=== PATIENT | male | born 1955 | race Caucasian/White ===

== ENCOUNTER → 2023-11-26 08:45 | Outpatient (REF) | payer OTHER, SELFPAY ==
[2023-11-26 12:33] LABS: % Basophils 0.7 % (0-2); % Eosinophils 2.4 % (0-6); % Lymphocytes 26.1 % (20.5-51.1); % Monocytes 9.7 % (1.7-9.3); % Neutrophils 60.1 % (42.2-75.2); Absolute Basophils 0.1 10^3/uL (0-0.2); Absolute Eosinophils 0.2 10^3/uL (0-0.7); Absolute Immature Granulocytes 0.1 10^3/uL (0-0.05); Absolute Lymphocytes 2.2 10^3/uL (1.2-3.4); Absolute Monocytes 0.8 10^3/uL (0.1-0.6); Absolute Neutrophils 5.2 10^3/uL (1.4-6.5); Hematocrit 43.9 % (39.0-52.0); Hemoglobin 15.2 g/dL (13.0-18.0); Mean Corp Hgb Conc. 34.6 g/dL (33.0-37.0); Mean Corpuscular Hgb 29.4 pg (27.0-31.0); Mean Corpuscular Volume 84.9 fL (80.0-94.0); Mean Platelet Volume 9.6 fL (7.4-10.4); Nucleated Red Blood Cells % 0 % (-); Platelet Count 413 10^3/uL (130-400); Red Blood Cell Count 5.17 10^6/uL (4.70-6.10); Red Cell Dist. Width 12.8 % (11.5-14.5); White Blood Cell Count 8.6 10^3/uL (4.8-10.8)
[2023-11-26 12:37] LABS: ALT (SGPT) 33 U/L (0-50); AST (SGOT) 29 U/L (17-59); Albumin 4.1 g/dl (3.5-5.0); Alkaline Phosphatase 65 U/L (38-126); Blood Urea Nitrogen 12 mg/dl (9-20); Calcium 9.3 mg/dl (8.4-10.2); Carbon Dioxide 30 mmol/L (22-30); Chloride 102 mmol/L (98-107); Direct Bilirubin 0.1 mg/dl (0.0-0.4); Glucose 94 mg/dl (70-99); HDL Cholesterol 32 mg/dl; LDL Cholesterol, Calculated 82 mg/dl; Sodium 137 mmol/L (135-145); Total Bilirubin 0.5 mg/dl (0.2-1.3); Total Cholesterol 173 mg/dl (50-199); Triglyceride 298 mg/dl (10-149); Very Low Density Lipoprotein 59 mg/dl (0-30); eGFR > 60.00
[2023-11-26 13:06] LABS: PSA, Total - Screen 0.48 ng/ml (0.0-4.0)
== END ==
LOC: HWLAB 08:45
PROVIDERS: ATTENDING PHYSICIAN Internal Medicine
DX: Z00.01 Encounter for general adult medical examination with abnormal findings (principal); Z12.5 Encounter for screening for malignant neoplasm of prostate
CPT/HCPCS: 36415; 80053; 80061; 82248; 85025; G0103

== ENCOUNTER → 2023-12-15 09:45 | Outpatient (REF) | payer OTHER, SELFPAY ==
[2023-12-15 12:49] LABS: Magnesium 1.9 mg/dl (1.6-2.3); Uric Acid 6.2 mg/dl (3.5-8.5)
== END ==
LOC: HWLAB 09:45
PROVIDERS: ATTENDING PHYSICIAN Internal Medicine
DX: R25.2 Cramp and spasm (principal); I89.0 Lymphedema, not elsewhere classified; M79.671 Pain in right foot
CPT/HCPCS: 36415; 83735; 84550

== ENCOUNTER 2024-10-19 14:35 | Emergency (ER) | payer OTHER, SELFPAY ==
[2024-10-19 14:38] VITALS: BP 153/100
--- NOTE | 2024-10-19 15:56 | ED.GENMED ---
History of Present Illness
General
Chief Complaint: Skin Surface Trauma
Source: patient and significant other
Exam Limitations: none
Time Seen by Provider: 10/19/24 15:13
Nursing documentation reviewed up to this point in time: agreed with
History of Present Illness
History of Present Illness:
see MDM
Past History
Past History
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
Social History
Tobacco: Non-smoker
Alcohol: None
Drug: None
Personal:
Living: with family
Review of Systems
Review of Systems
Allergies reviewed?: Yes
All Other Systems: Not applicable
Phy Exam
Physical Exam
Physical Exam:
GENERAL: Alert , in no apparent distress
HEAD: NCAT
FACE: multiple lacerations forehead, L auricle, chin, cheek
all superficial
no bleeding
4 cm to left forehead
4 cm to L cheek
EYE: pupils equal and reactive, EOMs intact.
ENT: TM normal L, normal canal, no fb and no bleeding
NEUROLOGICAL: Alert and oriented, no focal neuro deficits
SKIN: Warm and dry, lacerations, abrasions
PSYCH: Normal and appropriate interaction.
Course
Orders/Labs/Results
Orders:
Orders
10/19/24 15:54
Tetanus/Diphth/Acelpertussis [Adacel] 0.5 ml IM .ONCE ONE
Vital Signs
Initial and Last Documented VS:
Initial Vital Signs
Temp Pulse Resp BP Pulse Ox
36.8 C 102 15 153/100 96
10/19/24 14:38 10/19/24 14:38 10/19/24 14:38 10/19/24 14:38 10/19/24 14:38
Last Documented Vital Signs
Temp Pulse Resp BP Pulse Ox
36.8 C 102 15 153/100 96
10/19/24 14:38 10/19/24 14:38 10/19/24 14:38 10/19/24 14:38 10/19/24 14:38
MDM/Problems Addressed
Differential Diagnosis Includes:
see MDM
MDM/Problems Addressed:
Note:
CHIEF COMPLAINT(S)
Laceration to the forehead and multiple abrasions.
HISTORY OF PRESENT ILLNESS
The patient is a 68-year-old male presenting with multiple lacerations/scrapes to his face. The injuries occurred when he fell into shrubbery while attempting to dispose of a bird carcass that had drowned in his backyard pond. The patient reports
losing his balance and falling headfirst into the bushes. He describes 'surface scratches' on the head and ear, with one significant laceration that 'opened up pretty good.' The patient denies being diabetic. He has a history of hypertension The
patient inquires about receiving a tetanus shot, stating its been a long time since the last one.
PHYSICAL EXAM
- Head: Laceration noted on the forehead; multiple abrasions present.
- Ear: Abrasions noted.
Nursing notes reviewed and vital signs reviewed.
PLAN
- Clean the laceration and apply Steri-Strips.
- Administer a tetanus booster due to the nature of the injury and the duration since the last vaccination.
DIFFERENTIAL DIAGNOSIS
The Differential Diagnosis includes, in no particular order and is not limited to:
- Open laceration
- Abrasion
aware of pt's BP, h/o HTN
asymtpaomtmic
likely related to trauma
irrigated wounds with saline
sterristrips applied to L forehead and L cheek
all others were covered with bacitracin
tetanus updated
*Pulse Oximetry
SaO2: 96
ED Attending Note
-
Portions of this chart may have been created with voice recognition software.� Occasional wrong word or��sound alike� substitutions may have occurred due to the inherent limitations of voice recognition software.
Discharge Plan
Departure
Patient Disposition: Home (Routine Discharge)
Date of Disposition: 10/19/24
Time of Disposition: 15:58
Patient with high blood pressure during this ER visit?: Yes
Condition: Fair
Covid-19: Not Applicable
Discharge Problem:
Face lacerations
Instructions: Wound Care (DC)
Prescriptions:
No Action
[id number]-[id number] [Cortisporin] 10 ML drops,suspension
1 drp OT QID Qty: 10 0RF
Rx Instructions:
INSTILL ONE DROP INTO THE AFFECTED EAR FOUR TIMES A DAY FOR ONE WEEK
[id number] [Auralgan (w/ acetic acid)] 14 ML drops
1 drp OT QID Qty: 10 0RF
Referrals:
Av Oneil MD [Family Provider, Internal Medicine] - Follow up in 2-3 days
Activity Restrictions/Additional Instructions:
Leave the Steri-Strips in place and dry for 48 hours if possible. After that you can wash with mild soap and water. They will peel up and fall off. You can trim the edges as needed. Keep your wounds covered or protected from the sun you can use
bacitracin ointment for the wounds that are not Steri-Stripped
Interventions
Interventions:
*Risk Screen - Suicide Last Done: 10/19/24 14:38
*General Assessment Last Done: 10/19/24 14:38
*Neglect/Abuse Screening Last Done: 10/19/24 14:38
Discharge Date and Time
Print Language: GUYANESE
[2024-10-19] MEDS: ADACEL 0.5 ML IM (16:05)
== END 2024-10-19 16:26 | disposition home or self-care (01) ==
LOC: EMR 14:35
PROVIDERS: EMERGENCY PHYSICIAN Emergency Medicine; FAMILY PHYSICIAN Internal Medicine
DX: S01.81XA Laceration without foreign body of other part of head, initial encounter (principal); W01.0XXA Fall on same level from slipping, tripping and stumbling without subsequent striking against object, initial encounter; Z23 Encounter for immunization; I10 Essential (primary) hypertension
CPT/HCPCS: 99282; 90471; 90715

== ENCOUNTER → 2024-12-04 10:10 | Outpatient (REF) | payer OTHER, SELFPAY ==
[2024-12-04 12:12] LABS: Hematocrit 45.1 % (39.0-52.0); Hemoglobin 15.2 g/dL (13.0-18.0); Mean Corp Hgb Conc. 33.7 g/dL (33.0-37.0); Mean Corpuscular Volume 86.9 fL (80.0-94.0); Nucleated Red Blood Cells % 0 % (-); Platelet Count 414 10^3/uL (130-400); Red Cell Dist. Width 12.7 % (11.5-14.5)
[2024-12-04 12:33] LABS: ALT (SGPT) 26 U/L (0-50); AST (SGOT) 22 U/L (17-59); Albumin 4.4 g/dl (3.5-5.0); Alkaline Phosphatase 57 U/L (38-126); Blood Urea Nitrogen 15 mg/dl (9-20); Calcium 9.5 mg/dl (8.4-10.2); Carbon Dioxide 27 mmol/L (22-30); Chloride 104 mmol/L (98-107); Glucose 93 mg/dl (70-99); HDL Cholesterol 35 mg/dl; LDL Cholesterol, Calculated 94 mg/dl; Potassium 4.3 mmol/L (3.5-5.1); Sodium 138 mmol/L (135-145); Total Protein 7.3 g/dl (6.3-8.2); Very Low Density Lipoprotein 27 mg/dl (0-30); eGFR > 60.00
== END ==
LOC: HWLAB 10:10
PROVIDERS: ATTENDING PHYSICIAN Internal Medicine
DX: Z00.00 Encounter for general adult medical examination without abnormal findings (principal); I10 Essential (primary) hypertension; Z68.42 Body mass index [BMI] 45.0-49.9, adult; Z12.5 Encounter for screening for malignant neoplasm of prostate
CPT/HCPCS: 36415; 80053; 80061; 84153; 84154; 85025

== ENCOUNTER → 2024-12-08 12:50 | Outpatient (REF) | payer OTHER, SELFPAY | LOC: HWRAD 12:50 | PROVIDERS: ATTENDING PHYSICIAN Internal Medicine | DX: M25.511 Pain in right shoulder (principal); W19.XXXA Unspecified fall, initial encounter | CPT/HCPCS: 73030 ==